=== PATIENT | male | born 1935 | race Caucasian/White ===

== ENCOUNTER 2017-03-07 09:51 | Day surgery (SDC) | payer MEDICARE, BC ==
[~2017-03-07 09:51] MED LIST: Acetaminophen TAB* 325 MG PO PRN; Buffered Lidocaine 1% SYRIN* 3 ML/SYR SYRINGE INTRADERM ONE
[2017-03-07] MEDS ORDERED: Midazolam* 1 MG/ML 5 ML VIAL (5 MG) ONE (12:09)
[2017-03-07 13:13] VITALS: BP 138/86
[2017-03-07] MEDS ORDERED: Povidone Iodine 5% OPTH* 30 ML BTL ONE (13:46)
[2017-03-07] MEDS ORDERED: acetaZOLAMIDE TAB* 250 MG ONE (13:46)
[2017-03-07] MEDS ORDERED: Lidocaine 1% MPF* 2 ML VIAL ONE (13:46)
[2017-03-07] MEDS ORDERED: Cyclopentolate 1% OPTH.SOL* 2 ML BTL ONE (13:46)
[2017-03-07] MEDS ORDERED: Lidocaine 2% EPI 1:200000 MPF* 20 ML VIAL ONE (13:46)
[2017-03-07] MEDS ORDERED: Proparacaine 0.5% OPHTH.SOL* 15 ML BTL ONE (13:46)
[2017-03-07] MEDS ORDERED: Flurbiprofen 0.03% OPTH.SOL* 2.5 ML BTL ONE (13:46)
[2017-03-07] MEDS ORDERED: Neomycin/Polymy/Dex OPTH.SUSP* MAXITROL 0.1% 5 ML ONE (13:46)
[2017-03-07] MEDS ORDERED: Phenylephrine 2.5% OPTH.SOL* 2 ML BTL ONE (13:46)
--- NOTE | 2017-03-07 16:41 | OP ---
DATE OF OPERATION: 03/07/2017 - [facility] DATE OF : 1935. SURGEON: Sami Gomez M.D. PREOPERATIVE DIAGNOSIS: Cataract left eye. POSTOPERATIVE DIAGNOSIS: Cataract left eye. OPERATIVE PROCEDURE: Phacoemulsification left eye with IOL. DESCRIPTION OF PROCEDURE: The patient was brought to the operating room after being given 1/2% Alcaine with epinephrine drops in the preoperative area. The eye was prepped and draped in the usual sterile fashion. Sterile drape and eyelid speculum were placed. Again, topical 1/2% Alcaine with epinephrine was given. A paracentesis incision was made at the 3 o'clock position with the No.75 blade. Clear cornea incision 2.2 x 2.2-mm was created at the 6 o'clock position starting at the anterior limbus using the 2.2-mm keratome. The anterior chamber was irrigated with 0.4 mL of 1% non-preservative intracameral lidocaine and filled with DisCoVisc. A capsulorrhexis was completed using the cystotome and the Utrata forceps. Hydrodissection was performed with balanced salt solution. The lens nucleus was removed with the Phacoemulsification handpiece without incident. Cortex was removed with the irrigation-aspiration handpiece. The capsular bag was re-inflated using DisCoVisc and an [id number] implant was inserted with the shooter. The irrigation-aspiration handpiece was used to remove all residual DisCoVisc. The eye was refilled with balanced salt solution and the wound checked and found to be watertight. Topical Maxitrol drops were given. [id number] #: [id number] [facility]
== END 2017-03-07 13:20 | disposition home or self-care (01) ==
LOC: OREAST 09:51
PROVIDERS: ATTEND Specialist
DX: H25.812 Combined forms of age-related cataract, left eye (principal); E11.9 Type 2 diabetes mellitus without complications; Z85.46 Personal history of malignant neoplasm of prostate
CPT/HCPCS: A9270-GY; J2250; V2632

== ENCOUNTER 2020-06-07 05:37 | Observation (INO) ==
[2020-06-07] MEDS ORDERED: Buffered Lidocaine 1% SYRIN 1 ml INTRADERM ONE (06:00)
[2020-06-07] MEDS ORDERED: Lactated Ringers 1000 ml BAG 1,000 ML IV SCH (06:00)
[2020-06-07] MEDS ORDERED: ceFAZolin 2 GM PREMIX 2 GM/50 ML BAG ONE (06:20)
[2020-06-07] MEDS ORDERED: Sevoflurane BOTTLE ONE (06:51)
[2020-06-07] MEDS ORDERED: Desflurane 240 ML INH ONE (06:51)
[2020-06-07] MEDS ORDERED: Dexamethasone IV 4 MG/ML VIAL 1 ml VIAL ONE (06:53)
[2020-06-07] MEDS ORDERED: Sterile Water for Inj 10 ML ONE (06:53)
[2020-06-07] MEDS ORDERED: Succinylcholine 200 mg VIAL 20 mg/ml 10 ml VIAL (200 mg) ONE (06:53)
[2020-06-07] MEDS ORDERED: Ondansetron 4 mg VIAL 2 MG/ML 2 ml VIAL ONE (06:53)
[2020-06-07] MEDS ORDERED: Propofol 10 MG/ML 20 ML BTL ONE ×2 (06:53→06:54)
[2020-06-07] MEDS ORDERED: EPHEDrine (Pressors) 50 MG/ML VIAL ONE (06:53)
[2020-06-07] MEDS ORDERED: Lidocaine 2% PF 5 ML VIAL ONE ×3 (06:53→08:53)
[2020-06-07] MEDS ORDERED: Midazolam 2 mg/2 ml VIAL 1 mg/ml 2 ml VIAL (2 mg) ONE (06:55)
[2020-06-07] MEDS ORDERED: Bupivacaine 0.5% SDV PF 30ML VIAL ONE (06:56)
[2020-06-07] MEDS ORDERED: Glycopyrrolate IV 0.2 MG/ML 1 ML VIAL ONE (07:02)
[2020-06-07] MEDS ORDERED: ROPIVACAINE 5 MG/ML 30 ML BTL (0.5%) ONE (07:27)
[2020-06-07] MEDS ORDERED: Acetaminophen IV 1 GM/100ML 100 ML ONE (08:02)
[2020-06-07] MEDS ORDERED: Phenylephrine 40 mcg/mL 10mL (400mcg) SYRINGE ONE ×2 (08:12→09:32)
[2020-06-07] MEDS ORDERED: Ondansetron 4 mg VIAL 2 MG/ML 2 ml VIAL IV PRN ×2 (10:06→10:19)
[2020-06-07] MEDS ORDERED: Naloxone 0.4 mg VIAL 0.4 mg/ml 1 ml VIAL IV PRN (10:06)
[2020-06-07] MEDS ORDERED: fentaNYL 100 mcg/2 ml 50 MCG/ML VIAL IV PRN (10:06)
[2020-06-07] MEDS ORDERED: diPHENhydraMINE 25 mg TAB PO PRN (10:19)
[2020-06-07] MEDS ORDERED: Ondansetron ODT 4 mg TAB 4 MG TAB PO PRN (10:19)
[2020-06-07] MEDS ORDERED: Lactulose 30 ml UDC PO PRN (10:19)
[2020-06-07] MEDS ORDERED: diPHENhydraMINE IV 50 MG/ML 1 ml VIAL (BENADRYL) IV PRN (10:19)
[2020-06-07] MEDS ORDERED: Magnesium Hydroxide LIQ 30 ML UDC PO PRN (10:19)
[2020-06-07] MEDS ORDERED: oxyCODONE/Acetamin 5/325 mg TAB PO PRN ×2 (10:19)
[2020-06-07] MEDS: Lactated Ringers 1000 ml BAG 1,000 ML IV SCH (11:42)
[2020-06-07] MEDS ORDERED: Dextrose 50% Syringe 50 ml 25 GM/50 ML SYRINGE IV PUSH PRN (12:44)
[2020-06-07] MEDS: ceFAZolin 1 GM ADVAN 1 GM in NS 0.9% 50 ML 50 ML IVPB SCH ×2 (14:53→23:33)
[2020-06-07] MEDS: Magnesium Hydroxide LIQ 30 ML UDC PO SCH (21:25)
[2020-06-08] MEDS ORDERED: Polyethylene Glycol 3350 17 GM PACKET PO PRN (00:01)
[2020-06-08] MEDS: Lactated Ringers 1000 ml BAG 1,000 ML IV SCH (03:23)
[2020-06-08 07:54] LABS: Hematocrit 35 % (42-52); Hemoglobin 12.9 g/dL (14.0-18.0); Mean Platelet Volume 7.4 fL (7.4-10.4); Platelet Count 163 10^3/uL (150-450)
[2020-06-08 08:10] LABS: BUN/Creatinine Ratio 18.2 (8-20); Calcium 8.7 mg/dL (8.6-10.3); EGFR African American 138.8 (>60); EGFR Non-African American 114.7 (>60)
[2020-06-08] MEDS ORDERED: Vitamin THERAPEUTIC TAB PO SCH (09:00)
[2020-06-08] MEDS: ceFAZolin 1 GM ADVAN 1 GM in NS 0.9% 50 ML 50 ML IVPB SCH (09:35)
[2020-06-08] MEDS: Magnesium Hydroxide LIQ 30 ML UDC PO SCH (09:44)
[2020-06-08 16:33] VITALS: BP 133/57
== END 2020-06-08 14:15 | disposition home or self-care (01) ==
LOC: OR 05:37 → SSU 05:37
PROVIDERS: ADMIT Orthopaedic Surgery Adult Reconstructive Orthopaedic Surgery; ATTEND Orthopaedic Surgery Adult Reconstructive Orthopaedic Surgery

== ENCOUNTER 2021-02-03 06:25 | Observation (INO) ==
[~2021-02-03 06:25] MED LIST changes: -Acetaminophen TAB* 325 MG PO PRN; +Buffered Lidocaine 1% SYRIN 1 ml INTRADERM ONE; -Buffered Lidocaine 1% SYRIN* 3 ML/SYR SYRINGE INTRADERM ONE; +Lactated Ringers 1000 ml BAG 1,000 ML IV SCH
[2021-02-03] MEDS ORDERED: fentaNYL 100 mcg/2 ml 50 MCG/ML VIAL ONE ×2 (06:35→07:09)
[2021-02-03] MEDS ORDERED: Dexamethasone IV 4 MG/ML VIAL 1 ml VIAL ONE ×2 (06:36→10:13)
[2021-02-03] MEDS ORDERED: Bupivacaine 0.5% SDV PF 30ML VIAL ONE (06:36)
[2021-02-03] MEDS ORDERED: ceFAZolin 2 GM PREMIX 2 GM/50 ML BAG ONE (06:57)
[2021-02-03] MEDS ORDERED: Buffered Lidocaine 1% SYRIN 1 ml INTRADERM ONE (06:57)
[2021-02-03] MEDS ORDERED: Phenylephrine IV 10 MG/ML 1 ml VIAL ONE (07:00)
[2021-02-03] MEDS ORDERED: Lidocaine 2% PF 5 ML VIAL ONE (07:00)
[2021-02-03] MEDS ORDERED: Ketamine HCL 50 mg/ml 10 ml VIAL (500 MG) ONE (07:02)
[2021-02-03] MEDS ORDERED: Lidocaine 1% MPF 5 ML VIAL ONE (07:06)
[2021-02-03] MEDS ORDERED: Propofol 10 MG/ML 20 ML BTL ONE ×2 (07:09→07:22)
[2021-02-03] MEDS ORDERED: Ondansetron 4 mg VIAL 2 MG/ML 2 ml VIAL ONE (07:09)
[2021-02-03] MEDS ORDERED: Midazolam 2 mg/2 ml VIAL 1 mg/ml 2 ml VIAL (2 mg) ONE (07:09)
[2021-02-03] MEDS ORDERED: Rocuronium 50 mg VIAL 10 mg/ml 5 ml VIAL (50 mg) ONE ×2 (07:22→09:07)
[2021-02-03 07:23] LABS: INR 1.16 (0.82-1.09)
[2021-02-03] MEDS ORDERED: fentaNYL 250 mcg/5 ml 50 MCG/ML 5 ml VIAL (250 MCG) ONE (07:25)
[2021-02-03] MEDS ORDERED: Ropivacaine 5 MG/ML 20 ML VIAL 0.5% (100 MG) ONE (07:27)
[2021-02-03] MEDS ORDERED: HYDROmorphone 1 MG/1 ML SYRINGE ONE (08:36)
[2021-02-03] MEDS ORDERED: Morphine 2 MG/ML SYRINGE IV PRN (08:49)
[2021-02-03] MEDS ORDERED: Ondansetron 4 mg VIAL 2 MG/ML 2 ml VIAL IV PRN (08:49)
[2021-02-03] MEDS ORDERED: diPHENhydraMINE 25 mg TAB PO PRN (08:49)
[2021-02-03] MEDS ORDERED: Lactulose 30 ml UDC PO PRN (08:49)
[2021-02-03] MEDS ORDERED: Magnesium Hydroxide LIQ 30 ML UDC PO PRN (08:49)
[2021-02-03] MEDS ORDERED: Ondansetron ODT 4 mg TAB 4 MG TAB PO PRN (08:49)
[2021-02-03] MEDS ORDERED: diPHENhydraMINE IV 50 MG/ML 1 ml VIAL (BENADRYL) IV PRN ×2 (08:49→08:59)
[2021-02-03] MEDS ORDERED: Naloxone 0.4 mg VIAL 0.4 mg/ml 1 ml VIAL IV PRN (08:59)
[2021-02-03] MEDS ORDERED: fentaNYL 100 mcg/2 ml 50 MCG/ML VIAL IV PRN (08:59)
[2021-02-03] MEDS ORDERED: EPHEDrine (Pressors) 50 MG/ML VIAL ONE (09:56)
[2021-02-03] MEDS ORDERED: Dextrose 50% Syringe 50 ml 25 GM/50 ML SYRINGE IV PUSH PRN (11:19)
[2021-02-03] MEDS: Lactated Ringers 1000 ml BAG 1,000 ML IV SCH ×2 (11:52→22:36)
[2021-02-03] MEDS: Magnesium Hydroxide LIQ 30 ML UDC PO SCH ×2 (12:12→21:25)
[2021-02-03] MEDS: Vitamin THERAPEUTIC TAB PO SCH (12:12)
[2021-02-03] MEDS: CMCS - SitaGLIPtin 25mg TAB (NF) 25 MG TAB PO SCH (12:47)
[2021-02-03] MEDS: ceFAZolin 1 GM ADVAN 1 GM in NS 0.9% 50 ML 50 ML IVPB SCH (16:24)
[2021-02-04] MEDS: ceFAZolin 1 GM ADVAN 1 GM in NS 0.9% 50 ML 50 ML IVPB SCH ×2 (00:13→08:10)
[2021-02-04 06:35] LABS: Hematocrit 34 % (42-52); Hemoglobin 12.3 g/dL (14.0-18.0); Platelet Count 166 10^3/uL (150-450)
[2021-02-04 06:57] LABS: BUN/Creatinine Ratio 22.7 (8-20); Calcium 8.9 mg/dL (8.6-10.3); EGFR African American 138.8 (>60); EGFR Non-African American 114.7 (>60); Potassium 4.1 mmol/L (3.5-5.0)
[2021-02-04] MEDS: CMCS - SitaGLIPtin 25mg TAB (NF) 25 MG TAB PO SCH (08:07)
[2021-02-04] MEDS: Magnesium Hydroxide LIQ 30 ML UDC PO SCH (08:08)
[2021-02-04] MEDS: Vitamin THERAPEUTIC TAB PO SCH (08:11)
[2021-02-04 11:59] VITALS: BP 118/65
== END 2021-02-04 15:25 | disposition home or self-care (01) ==
LOC: OR 06:25 → SSU 06:25
PROVIDERS: ADMIT Orthopaedic Surgery Adult Reconstructive Orthopaedic Surgery; ATTEND Orthopaedic Surgery Adult Reconstructive Orthopaedic Surgery